=== PATIENT | female | born 1995 | race American Indian/Alaskan Native ===

== ENCOUNTER 2021-08-16 18:15 | Outpatient (CLI) | payer MEDICAID ==
[2021-08-16 19:21] VITALS: BP 114/78
[2021-08-16 20:46] LABS: Bilirubin,Urine NEG (Negative); Blood,Urine NEG (Negative); Color,Urine Yellow (Yellow); Protein,Urine <15 mg/dL mg/dL (Negative); Urobilinogen,Urine < 2.0 mg/dL (<2.0)
[2021-08-16 20:48] LABS: Bacteria,Urine 3+ /HPF (Negative); Mucus,Urine FEW /HPF
[2021-08-16] MEDS ORDERED: cefTRIAXone/NS 2 GM/100 ML 2 GM/100 ML BAG IV ONE (21:06)
[2021-08-16] MEDS ORDERED: SODIUM CHLORIDE 0.9% 1000 ML 1,000 ML IV SCH (21:30)
== END 2021-08-16 22:25 | disposition home or self-care (01) ==
LOC: TRG 18:15 → APU 18:17 → TRG 22:25
PROVIDERS: ATTEND Obstetrics & Gynecology
DX: O26.892 Other specified pregnancy related conditions, second trimester (principal); M54.50 Low back pain, unspecified; R10.2 Pelvic and perineal pain; O13.2 Gestational [pregnancy-induced] hypertension without significant proteinuria, second trimester; O99.333 Smoking (tobacco) complicating pregnancy, third trimester; F17.200 Nicotine dependence, unspecified, uncomplicated; Z3A.37 37 weeks gestation of pregnancy
CPT/HCPCS: 81001; 87086; 96361; 96365; J0696; J7030

== ENCOUNTER 2021-10-27 14:17 | Inpatient (IN) | payer MEDICAID ==
[2021-10-27] MEDS ORDERED: miSOPROStol 200 MCG TAB PR PRN (19:49)
[2021-10-27] MEDS ORDERED: ePHEDrine SULFATE 50 MG/1 ML INJ IV PRN (19:49)
[2021-10-27] MEDS ORDERED: DINOPROSTONE 10 MG VAG SUPP VG ONE (19:49)
[2021-10-27] MEDS ORDERED: LOPERAMIDE 2 MG CAP PO PRN (19:49)
[2021-10-27] MEDS ORDERED: TERBUTALINE 1 MG/1 ML INJ SUB-Q PRN (19:49)
[2021-10-27] MEDS ORDERED: MINERAL OIL 30 ML ORAL LIQD PO PRN (19:49)
[2021-10-27] MEDS ORDERED: BUTORPHANOL 2 MG/1 ML INJ IV PRN ×2 (19:49)
[2021-10-27] MEDS ORDERED: ACETAMINOPHEN 325 MG TAB PO PRN (19:49)
[2021-10-27] MEDS ORDERED: METHYLERGONOVINE MALEATE 0.2 MG/ML VIAL IM PRN (19:49)
[2021-10-27] MEDS ORDERED: CARBOPROST TROMETHAMINE 250 MCG/1 ML INJ IM PRN (19:49)
[2021-10-27] MEDS ORDERED: LIDOCAINE (2%) 20 MG/1 ML VIAL 20 ML MDV INFILTRATI ONE (19:49)
[2021-10-27] MEDS ORDERED: OXYTOCIN 10 UNIT/1 ML INJ IM PRN (19:49)
[2021-10-27] MEDS ORDERED: OXYTOCIN DRIP 30 UNITS/500 ML BAG IV SCH ×2 (20:00)
[2021-10-27 21:02] LABS: Hematocrit 31.8 % (30.3-42.9); Hemoglobin 10.5 gm/dl (10.1-14.3); Mean Corpuscular HGB Conc 33 % (30-34); Mean Corpuscular Volume 82 fl (79-97); Platelet Count 209 K/mm3 (140-440); Red Blood Count 3.89 M/mm3 (3.65-5.03); Red Cell Distribution Width 16.2 % (13.2-15.2)
[2021-10-28] MEDS ORDERED: FLUCONAZOLE 100 MG TAB PO ONE (11:00)
--- NOTE | 2021-10-28 12:47 | History and Physical Report ---
History of Present Illness Date of examination: 10/28/21 Date of admission: 10/27/21 Chief complaint: IUGR, preeclampsia. History of present illness: . X2 vag deliveries. VICTORIANO 11/08/21 [facility] ordered induction of labor. Past History Past Medical History: no pertinent history, hypertension - Obstetrical History Expected Date of Delivery: 11/08/21 Actual Gestation: 38 Week(s) 3 Day(s) : 3 Medications and Allergies Allergies Allergy/AdvReac Type Severity Reaction Status Date / Time No Known Allergies Allergy Unverified 08/16/21 19:37 Active Meds: Active Medications Acetaminophen (Acetaminophen 325 Mg Tab) 650 mg PO Q4H PRN PRN Reason: Pain, Mild (1-3) Butorphanol Tartrate (Butorphanol 2 Mg/1 Ml Inj) 2 mg IV Q2H PRN PRN Reason: Pain , Severe (7-10) Butorphanol Tartrate (Butorphanol 2 Mg/1 Ml Inj) 1 mg IV Q2H PRN PRN Reason: Pain, Moderate(4-6) LABOR PAIN Carboprost Tromethamine (Carboprost Tromethamine 250 Mcg/1 Ml Inj) 250 mcg IM ONCE PRN PRN Reason: Uterine Bleeding Ephedrine Sulfate (Ephedrine Sulfate 50 Mg/1 Ml Inj) 10 mg IV Q2M PRN PRN Reason: Hypotension Oxytocin/Sodium Chloride (Pitocin/Ns 30 Unit/500ml) 30 units in 500 mls @ 2 mls/hr IV TITR CAROLE; Protocol Lactated Ringer's (Lactated Ringers) 1,000 mls @ 125 mls/hr IV DIRECT CAROLE Oxytocin/Sodium Chloride (Pitocin/Ns 30 Unit/500ml) 30 units in 500 mls @ 40 mls/hr IV TITR CAROLE; Protocol Loperamide HCl (Loperamide 2 Mg Cap) 2 mg PO ONCE PRN PRN Reason: give with Hemabate Methylergonovine Maleate (Methylergonovine Maleate 0.2 Mg/Ml Vial) 0.2 mg IM ONCE PRN PRN Reason: Uterine Bleeding Mineral Oil (Mineral Oil 30 Ml Oral Liqd) 30 ml PO QHS PRN PRN Reason: Constipation Misoprostol (Misoprostol 200 Mcg Tab) 800 mcg [place] ONCE PRN PRN Reason: Uterine Bleeding Oxytocin (Oxytocin 10 Unit/1 Ml Inj) 10 unit IM ONCE PRN PRN Reason: Uterine Bleeding Terbutaline Sulfate (Terbutaline 1 Mg/1 Ml Inj) 0.25 mg SUB-Q ONCE PRN PRN Reason: Hyperstimulation/Hypertonicity Review of Systems All systems: negative - Vital Signs Vital signs: Vital Signs Pulse Pulse Ox 91 H 99 10/27/21 17:27 10/27/21 17:27 Temp Pulse Resp BP Pulse Ox 98.2 F 105 H 14 121/81 100 10/28/21 08:20 10/28/21 12:33 10/27/21 19:23 10/28/21 12:07 10/28/21 12:33 - Physical Exam Lungs: Positive: Normal air movement Abdomen: Positive: normal appearance, soft, normal bowel sounds Genitourinary (Female): Positive: normal external genitalia, normal perenium Vulva: both: normal Vagina: Positive: discharge (tabitha) Cervix: Negative: lesion, discharge Uterus: Positive: enlarged, normal contour Anus/Rectum: Positive: normal perianal skin Extremities: Positive: normal Deep Tendon Reflex Grade: Normal +2 - Obstetrical FHR: category 1 Cervical Dilatation: 0 Cervical Effacement Percentage: 70 station: 0-2 Uterine Contraction Pattern: Absent Results Result Diagrams: 10/27/21 20:52 Abnormal lab results 10/27/21 Range/Units 20:52 MCH 27 L (28-32) pg RDW 16.2 H (13.2-15.2) % All other labs normal. Assessment and Plan - Patient Problems (1) 38 weeks gestation of Current Visit: Yes Status: Acute (2) IUGR (intrauterine growth restriction) Current Visit: Yes Status: Acute (3) Tabitha vaginitis Current Visit: Yes Status: Acute Plan to address problem: rx diflucan po. (4) Preeclampsia Current Visit: Yes Status: Acute Plan to address problem: Cervidil induction in progress.
[2021-10-28] MEDS ORDERED: BUTORPHANOL 2 MG/1 ML INJ IV PRN (12:48)
[2021-10-28] MEDS ORDERED: NALOXONE 0.4 MG/1 ML INJ IV PRN (12:48)
[2021-10-28] MEDS ORDERED: fentaNYL 100 MCG/2 ML INJ IV PRN (12:48)
[2021-10-28] MEDS ORDERED: METHYLERGONOVINE MALEATE 0.2 MG/ML VIAL IM PRN (12:48)
[2021-10-28] MEDS ORDERED: OXYTOCIN 10 UNIT/1 ML INJ IM PRN (12:48)
[2021-10-28] MEDS ORDERED: miSOPROStol 200 MCG TAB PR PRN (12:48)
[2021-10-28] MEDS ORDERED: ACETAMINOPHEN 325 MG TAB PO PRN (12:48)
[2021-10-28] MEDS ORDERED: LIDOCAINE (2%) 20 MG/1 ML VIAL 20 ML MDV INFILTRATI ONE (12:48)
[2021-10-28] MEDS ORDERED: TERBUTALINE 1 MG/1 ML INJ SUB-Q PRN (12:48)
[2021-10-28] MEDS ORDERED: OXYTOCIN DRIP 30 UNITS/500 ML BAG IV SCH ×2 (13:00)
[2021-10-28] MEDS ORDERED: DINOPROSTONE 10 MG VAG SUPP VG ONE (17:00)
[2021-10-28] MEDS: LACTATED RINGERS 1,000 ML IV SCH (18:00)
[2021-10-29] MEDS: LACTATED RINGERS 1,000 ML IV SCH ×3 (01:05→09:30)
[2021-10-29] MEDS ORDERED: NALOXONE 0.4 MG/1 ML INJ IV PRN (09:08)
[2021-10-29] MEDS ORDERED: ePHEDrine SULFATE 50 MG/1 ML INJ IV PRN (09:08)
[2021-10-29] MEDS ORDERED: fentaNYL-BUPIV 2 MCG/ML-0.125% 200 MCG/100 ML BAG EPIDURAL SCH (10:00)
--- NOTE | 2021-10-29 10:52 | Anesthesia Consultation ---
Anesthesia Consult and Med Hx Date of service: 10/29/21 - Airway Anesthetic Teeth Evaluation: Poor ROM Head & Neck: Adequate Mental/Hyoid Distance: Adequate Mallampati Class: Class II Intubation Access Assessment: Probably Good - Pulmonary Exam CTA: Yes - Cardiac Exam Cardiac Exam: RRR - Pre-Operative Health Status ASA Pre-Surgery Classification: ASA3 Proposed Anesthetic Plan: Epidural - Pulmonary Hx Asthma: No - Cardiovascular System Hx Hypertension: Yes - Central Nervous System Hx Seizures: No Hx Psychiatric Problems: No - Endocrine Hx Renal Disease: No Hx Hypothyroidism: No Hx Hyperthyroidism: No - Hematic Hx Anemia: No Hx Sickle Cell Disease: No - Other Systems Hx Alcohol Use: No Hx Substance Use: No Hx Obesity: Yes
--- NOTE | 2021-10-29 10:54 | Progress Note ---
Labor Epidural - Labor Epidural Start Time: 09:30 Stop Time: 09:50 Performed by:: ROSSY KELLEY Procedure: Patient is requesting a laboring epidural for laboring pain. Patient IDed, H&P reviewed, all questions and concerns were answered, and consent was signed. Timeout was performed at bedside. Patient in sitting position. Sterile prep and drape was performed. [3] ml of 1% lidocaine skin wheal at L[3]- L [4]x 1 attempt and L4-5x 1 attempt. 17-gauge Tuohy epidural needle was advanced to loss of resistance with saline technique 8cm. Single dural perforation via 25 gauge spinal needle placed through the shaft of Epidural needle. Positive CSF via spinal needle. Negative CSF negative blood via Epidural needle. Epidural catheter advanced to [12] centimeters. [NEGATIVE] Aspiration [NEGATIVE] test dose. Negative Paresthesia. Sterile dressing applied. Patient tolerated procedure.
[2021-10-29] MEDS ORDERED: diphenhydrAMINE 25 MG CAP PO PRN (12:52)
[2021-10-29] MEDS ORDERED: ONDANSETRON 4 MG/2 ML INJ IV PRN (12:52)
[2021-10-29] MEDS ORDERED: MAGNESIUM HYDROXIDE (MOM) ORAL LIQD UDC PO PRN (12:52)
[2021-10-29] MEDS ORDERED: ACETAMINOPHEN 325 MG TAB PO PRN (12:52)
[2021-10-29] MEDS ORDERED: LANOLIN/ZINC/DIMETHICONE (LANSINOH) 7 GM TP PRN (12:52)
[2021-10-29] MEDS ORDERED: PROMETHAZINE 25 MG RECT SUPP PR PRN (12:52)
[2021-10-29] MEDS ORDERED: KETOROLAC 30 MG/1 ML INJ IV PRN (12:52)
[2021-10-29] MEDS ORDERED: WITCH HAZEL/ GLYCERIN PAD TP PRN (12:52)
[2021-10-29] MEDS ORDERED: PROMETHAZINE 25 MG TAB PO PRN (12:52)
--- NOTE | 2021-10-29 12:58 | Procedure Note ---
OB Delivery Note - Delivery Date of Delivery: 10/29/21 Surgeon: ENDY KEATING Estimated blood loss: 100cc - Vaginal Delivery presentation: vertex Delivery position: OA Intrapartum events: none Delivery induction: cervidil Delivery augmentation: rupture of membranes, pitocin Delivery monitor: external FHT, external uterine, internal uterine Route of delivery: Delivery placenta: spontaneous, expressed Delivery cord: 3 umbilical vessels Episiotomy: none Delivery laceration: none Anesthesia: epidural - Infant A at 1 minute: 8 at 5 minutes: 9 Infant Gender: Male (6lbs 2oz)
[2021-10-29] MEDS: SENNOSIDES/DOCUSATE SODIUM 8.6/50 MG TAB PO SCH (17:43)
[2021-10-29] MEDS: HYDROcodone/ACETAMINOPHEN 5-325 MG TAB PO PRN (17:43)
[2021-10-29] MEDS ORDERED: IBUPROFEN 800 MG TAB PO PRN (21:04)
[2021-10-29] MEDS: DOCUSATE SODIUM 100 MG CAP PO SCH (21:30)
[2021-10-30] MEDS: SENNOSIDES/DOCUSATE SODIUM 8.6/50 MG TAB PO SCH ×2 (01:00→13:19)
--- NOTE | 2021-10-30 04:32 | Post Anesthesia Evaluation ---
- Post Anesthesia Evaluation Patient Participated: Yes Airway Patent: Yes Stable Respiratory Function: Yes Nausea/Vomiting: No Temp > 96.8F: Yes Pain Manageable: Yes Adequeate Hydration: Yes Anesthesia Complications: No Block Receding Appropriately: Yes Patient on Ventilator: No
[2021-10-30 05:24] LABS: Hematocrit 28.3 % (30.3-42.9); Hemoglobin 9.2 gm/dl (10.1-14.3)
[2021-10-30] MEDS: HYDROcodone/ACETAMINOPHEN 5-325 MG TAB PO PRN (06:10)
--- NOTE | 2021-10-30 09:00 | Progress Note ---
Assessment and Plan - Patient Problems (1) 38 weeks gestation of Current Visit: Yes Status: Resolved (2) IUGR (intrauterine growth restriction) Current Visit: Yes Status: Resolved (3) Tabitha vaginitis Current Visit: Yes Status: Resolved (4) Preeclampsia Current Visit: Yes Status: Acute Qualifiers: Qualified Code(s): O14.93 - Unspecified pre-eclampsia, third trimester Plan to address problem: , BPs within acceptable range without medications. (5) Status post vaginal delivery Current Visit: Yes Status: Acute Plan to address problem: Stable and possibly for home this afternoon. Subjective - Subjective Date of service: 10/30/21 Principal diagnosis: Status post vaginal delivery Interval history: . X2 vag deliveries. VICTORIANO 11/08/21 [facility] ordered induction of labor. 10/30/2021 Status post vaginal delivery day 1 No complaints, wants to go home. Patient reports: appetite normal, voiding normally, pain well controlled, ambulating normally : doing well Objective - Vital Signs Latest vital signs: Vital Signs Temp Pulse Resp BP BP Pulse Ox Pulse Ox 10/30/21 07:41 97.7 F 84 20 132/83 99 10/30/21 06:10 18 10/30/21 01:33 97.6 F 82 20 100/52 98 10/29/21 21:30 16 10/29/21 20:55 97.9 F 77 20 124/75 99 10/29/21 20:19 98 10/29/21 14:55 97.6 F 69 20 123/80 100 100 10/29/21 14:00 97.6 F 68 20 133/83 10/29/21 13:43 84 97 10/29/21 13:38 73 122/82 100 10/29/21 13:33 77 100 10/29/21 13:28 78 100 10/29/21 13:23 66 120/79 100 10/29/21 13:18 81 100 10/29/21 13:13 69 100 10/29/21 13:08 77 127/83 100 10/29/21 13:03 72 99 10/29/21 12:58 81 99 10/29/21 12:53 77 130/81 100 10/29/21 12:51 73 130/84 10/29/21 12:48 74 99 10/29/21 12:43 77 99 10/29/21 12:38 116 H 100 10/29/21 12:33 94 H 94 10/29/21 12:28 61 57 L 10/29/21 12:23 62 100 10/29/21 12:18 76 100 10/29/21 12:13 71 100 10/29/21 12:09 63 144/97 10/29/21 12:08 69 99 10/29/21 12:03 68 100 10/29/21 11:58 69 100 10/29/21 11:53 58 L 129/82 100 10/29/21 11:48 62 99 10/29/21 11:43 71 99 10/29/21 11:39 82 126/76 10/29/21 11:38 76 100 10/29/21 11:33 68 100 10/29/21 11:28 68 100 10/29/21 11:24 71 127/75 10/29/21 11:23 71 100 10/29/21 11:18 70 100 10/29/21 11:13 81 100 10/29/21 11:08 67 121/77 100 10/29/21 11:06 74 92 10/29/21 11:03 68 100 10/29/21 10:59 75 94 10/29/21 10:58 69 100 10/29/21 10:53 87 100 10/29/21 10:48 92 H 100 10/29/21 10:47 62 91 10/29/21 10:43 77 98 10/29/21 10:38 76 93 10/29/21 10:37 70 100 10/29/21 10:32 66 99 10/29/21 10:27 67 99 10/29/21 10:22 75 93 10/29/21 10:17 74 99 10/29/21 10:16 98.3 F 70 18 122/69 10/29/21 10:12 69 100 10/29/21 10:11 71 126/68 10/29/21 10:09 89 93 10/29/21 10:07 87 99 10/29/21 10:05 93 H 119/71 10/29/21 10:03 86 121/73 10/29/21 10:02 84 100 10/29/21 10:01 82 133/80 10/29/21 09:59 82 128/77 10/29/21 09:57 76 134/64 99 09/11/22 09:56 89 90 10/29/21 09:55 78 138/83 10/29/21 09:53 78 140/79 10/29/21 09:52 78 100 10/29/21 09:51 83 142/84 10/29/21 09:49 76 144/77 10/29/21 09:47 75 136/84 100 10/29/21 09:42 77 100 10/29/21 09:39 80 137/88 10/29/21 09:37 77 99 10/29/21 09:36 87 129/87 10/29/21 09:34 74 86 10/29/21 09:33 73 123/80 10/29/21 09:32 71 100 10/29/21 09:30 72 127/86 10/29/21 09:27 74 138/84 86 10/29/21 09:26 93 10/29/21 09:20 80 90 10/29/21 09:17 76 100 10/29/21 09:12 71 99 10/29/21 09:07 69 99 10/29/21 09:02 77 94 Intake and Output 10/29/21 10/30/21 10/30/21 23:59 07:59 15:59 Intake Total 240 360 Output Total 400 1 Balance -160 359 Intake: Oral 240 360 Output: Urine 400 Void 400 Stool 1 Other: Total, Intake Amount 240 120 Total, Output Amount 400 1 # Voids Void 2 1 - Exam Lungs: Present: Normal air movement Abdomen: Present: normal appearance, soft, normal bowel sounds Uterus: Present: normal, firm Extremities: Present: normal Deep Tendon Reflex Grade: Normal +2 - Labs Labs: Abnormal lab results 10/30/21 Range/Units 05:10 Hgb 9.2 L (10.1-14.3) gm/dl Hct 28.3 L (30.3-42.9) %
--- NOTE | 2021-10-30 09:03 | Discharge Summary ---
Providers - Providers Date of Admission: 10/28/21 12:49 Date of discharge: 10/31/19 Attending physician: ENDY KEATING MD Primary care physician: ENDY KEATING MD Hospitalization Reason for admission: induction of labor, other (Preeclampsia, IUGR) Delivery: Episiotomy: none Laceration: none Other procedures: none complications: none Discharge diagnosis: IUP at term delivered [place] baby: male Condition at discharge: Good Disposition: 01 HOME / SELF CARE / HOMELESS - Discharge Diagnoses (1) 38 weeks gestation of Status: Resolved (2) IUGR (intrauterine growth restriction) Status: Resolved (3) Tabitha vaginitis Status: Resolved (4) Preeclampsia Status: Acute Qualifiers: Qualified Code(s): O14.93 - Unspecified pre-eclampsia, third trimester (5) Status post vaginal delivery Status: Acute Plan - Provider Discharge Summary Activity: routine, no sex for 6 weeks, no heavy lifting 4 weeks, no strenuous exercise Diet: routine Instructions: other (Must return to doctor's office in 1 week for blood pressure check) Additional instructions: [] Smoking cessation referral if applicable(refer to patient education folder for contact #) [] Refer to [facility]'s [facility] Booklet Call your doctor immediately for: * Fever > 100.5 * Heavy vaginal bleeding ( >1 pad per hour) * Severe persistent headache * Shortness of breath * Reddened, hot, painful area to leg or breast * Drainage or odor from incision. * Keep incision clean and dry at all times and follow doctor's instructions regarding bathing/showering - Follow up plan Follow up: ENDY KEATING MD [Primary Care Provider] - 7 Days
[2021-10-30] MEDS ORDERED: PRENATAL VIT27-FE FUMARATE-FOLIC ACID VIT TAB PO SCH (10:00)
[2021-10-30] MEDS ORDERED: oxyCODONE /ACETAMINOPHEN 5-325MG TAB PO NR (10:00)
[2021-10-30] MEDS: DOCUSATE SODIUM 100 MG CAP PO SCH (13:23)
[2021-10-30 17:10] VITALS: BP 128/83
== END 2021-10-30 19:00 | disposition home or self-care (01) | DRG 774 ==
LOC: TRG 14:17 → APU 14:17 → LD 21:43 → TRG 10-28 13:38 → OB 10-29 14:36
PROVIDERS: ADMIT Obstetrics & Gynecology; ATTEND Obstetrics & Gynecology
PROC: 10E0XZZ Delivery of Products of Conception, External Approach (ICD-10-PCS; principal; 2021-10-29)
PROC: 3E0P7VZ Introduction of Hormone into Female Reproductive, Via Natural or Artificial Opening (ICD-10-PCS; 2021-10-29)
PROC: 00HU33Z Insertion of Infusion Device into Spinal Canal, Percutaneous Approach (ICD-10-PCS; 2021-10-29)
PROC: 3E0R3BZ Introduction of Anesthetic Agent into Spinal Canal, Percutaneous Approach (ICD-10-PCS; 2021-10-29)
DX: O36.5930 Maternal care for other known or suspected poor fetal growth, third trimester, not applicable or unspecified (principal); O98.82 Other maternal infectious and parasitic diseases complicating childbirth; O14.94 Unspecified pre-eclampsia, complicating childbirth; Z3A.38 38 weeks gestation of pregnancy; Z37.0 Single live birth; Z20.822 Contact with and (suspected) exposure to COVID-19; B37.3 Candidiasis of vulva and vagina
CPT/HCPCS: 36415; 59200; 85014; 85018; 85027; 86592; 86850; 86900; 86901; G0378; J3490; J0595; J2590; J7120; U0003